=== PATIENT | female | born 1965 | race Two or more races ===

== ENCOUNTER 2023-07-31 05:49 | Emergency (ER) | payer OTHER ==
[~2023-07-31] VITALS: Ht 152.4 cm; Wt 74.8 kg
== END 2023-07-31 07:56 | disposition home or self-care (01) ==
LOC: ER 05:50
DX: R11.10 Vomiting, unspecified (principal); K21.9 Gastro-esophageal reflux disease without esophagitis; K30 Functional dyspepsia
CPT/HCPCS: 96365; 99283; J1885; J3490